=== PATIENT | male | born 1970 | race Caucasian/White ===

== ENCOUNTER → 2017-05-18 | Outpatient (CLI) | payer SELFPAY ==
[~2017-05-18] MED LIST: COLACE-DPS100 MG PO; COMPAZINE10 MG PO; GLUCOPHAGE-DPS500 MG PO; LEVAQUIN DPS500 MG PO; MAALOX DPS30 ML PO; PERCOCET 7.5-31 EACH PO; TYLENOL DPS325 MG PO; ZOFRAN4 MG PO
== END | disposition home or self-care (01) ==
LOC: RAD.S 14:00
DX: N28.89 Other specified disorders of kidney and ureter (principal); Q61.9 Cystic kidney disease, unspecified